=== PATIENT | male | born 1975 | race Hispanic/Latino ===

== ENCOUNTER 2021-03-01 10:42 | Emergency (ER) | payer SELFPAY ==
[2021-03-01 11:44] LABS: Protime INR 1.1
[2021-03-01] MEDS ORDERED: METHYLPREDNISOLONE 125 MG INJ ONE (11:53)
[2021-03-01] MEDS ORDERED: NA CHLORIDE 0.9% 500 ML ONE (11:53)
--- NOTE | 2021-03-01 11:53 | RAD REPORT ---
EXAM DESCRIPTION: RAD - Chest Single View - 03/01/2021 11:34 am CLINICAL HISTORY: Cough;Dyspnea Chest pain. COMPARISON: No comparisons FINDINGS: Portable technique limits examination quality. Mild bilateral interstitial lung opacities are present likely representing a viral infection/bronchit is. The heart is normal in size. No displaced fractures.
[2021-03-01 12:05] LABS: ALT/SGPT 30 U/L (12-78); AST/SGOT 36 U/L (15-37); Albumin 3.6 g/dL (3.4-5.0); Alkaline Phosphatase 132 U/L (45-117); BUN Blood Urea Nitrogen 12 mg/dL (7-18); Bicarbonate 25 mmol/L (21-32); Bilirubin Direct 0.2 mg/dL (0-0.2); Bilirubin Total 0.7 mg/dL (0.2-1.0); Ferritin 1052.9 ng/mL (26-388); Glucose Level 122 mg/dL (74-106); Potassium 3.5 mmol/L (3.5-5.1); Protein, Total 8.1 g/dL (6.4-8.2); Sodium Level 137 mmol/L (136-145); Troponin (Emerg Dept Use Only) < 0.02 ng/mL (0.0-0.045)
[2021-03-01 12:07] LABS: Absolute Lymphocytes (CBC) 0.5 K/uL (0.7-4.9); Basophils % 0.2 % (0-1.3); Hematocrit 37.1 % (39.6-49.0); Lymphocytes % 10.9 % (15.3-44.8); MPV 9.1 fL (7.6-11.3); RBC Red Blood Cell Count 4.18 M/uL (4.33-5.43)
[2021-03-01 12:37] LABS: SARS-COV-2 RT PCR POSITIVE (NEGATIVE)
[2021-03-01] MEDS ORDERED: CASIRIVIMAB/IMDEVIMAB 10 ML VIAL ONE (13:46)
--- NOTE | 2021-03-01 13:51 | ER ---
Nurse's Notes [facility] Name: Estrellita Tsang Age: 45 yrs Sex: Male : 1975 Arrival Date: 03/01/2021 Time: 10:46 Bed 17 Private MD: Diagnosis: Pneumonia due to SARS-associated coronavirus;Dehydration Presentation: 03/01 10:54 Chief complaint: Body aches, cough, chills, and fever 5 days, worse over last 2 days. hb TMAX 100. Coronavirus screen: Client presents with at least one sign or symptom that may indicate coronavirus-19. Standard/surgical mask placed on the client. Provider contacted for isolation considerations. Ebola Screen: No symptoms or risks identified at this time. Initial Sepsis Screen: Does the patient meet any 2 criteria? No. Patient's initial sepsis screen is negative. Does the patient have a suspected source of infection? No. Patient's initial sepsis screen is negative. Risk Assessment: Do you want to hurt yourself or someone else? Patient reports no desire to harm self or others. Onset of symptoms was February 24, 2021. 10:54 Method Of Arrival: Ambulatory hb 10:54 Acuity: MARILOU 3 hb Historical: - Allergies: 10:55 No Known Allergies; hb - Immunization history:: Adult Immunizations up to date. - Social history:: Smoking status: Patient denies any tobacco usage or history of. - Family history:: not pertinent. - Hospitalizations: : No recent hospitalization is reported. Screenin:52 Abuse screen: Denies threats or abuse. Abuse screen: Denies threats or abuse. ll1 Nutritional screening: No deficits noted. Tuberculosis screening: No symptoms or risk factors identified. Fall Risk IV access (20 points). Ambulatory Aid- Gait- Weak (10 pts.). Total Calderon Fall Scale indicates Low Risk Score (25-44 pts). Fall prevention measures have been instituted. Side Rails Up X 2 Frequent Obs/Assesments occuring As available Patient and Family Educated on Fall Prevention Program and strategies. Assessment: 11:00 General: Appears ill, Behavior is calm, cooperative, appropriate for age. Pain: ll1 Complains of pain in head Quality of pain is described as aching. Neuro: Level of Consciousness is awake, alert, obeys commands, Oriented to person, place, time, situation, Appropriate for age Toolmaker Grade Three are Moves all extremities. Full function Gait is steady, Speech is normal, Reports headache weakness. Cardiovascular: No deficits noted. Respiratory: Reports cough that is dry, Airway is patent Trachea midline Respiratory effort is even, unlabored, Respiratory pattern is regular, symmetrical, Sputum is clear Breath sounds are clear bilaterally. Derm: Reports body aches and chills, fatigue malaise. 12:00 Reassessment: No changes from previously documented assessment. Patient and/or family ll1 updated on plan of care and expected duration. Pain level reassessed. Patient is alert, oriented x 3, equal unlabored respirations, skin warm/dry/pink. 13:00 Reassessment: No changes from previously documented assessment. Patient and/or family ll1 updated on plan of care and expected duration. Pain level reassessed. Patient is alert, oriented x 3, equal unlabored respirations, skin warm/dry/pink. 14:00 Reassessment: No changes from previously documented assessment. Patient and/or family ll1 updated on plan of care and expected duration. Pain level reassessed. Patient is alert, oriented x 3, equal unlabored respirations, skin warm/dry/pink. 15:00 Reassessment: No changes from previously documented assessment. Patient and/or family ll1 updated on plan of care and expected duration. Pain level reassessed. Patient is alert, oriented x 3, equal unlabored respirations, skin warm/dry/pink. 16:00 Reassessment: No changes from previously documented assessment. Patient and/or family ll1 updated on plan of care and expected duration. Pain level reassessed. Patient is alert, oriented x 3, equal unlabored respirations, skin warm/dry/pink. 17:00 Reassessment: No changes from previously documented assessment. Patient and/or family ll1 updated on plan of care and expected duration. Pain level reassessed. Patient is alert, oriented x 3, equal unlabored respirations, skin warm/dry/pink. Vital Signs: 10:54 BP 137 / 88; Pulse 73; Resp 18; Temp 97.7; Pulse Ox 92% on R/A; Weight 83.46 kg; Height hb 5 ft. 7 in. (170.18 cm); Pain 10/10; 12:33 BP 130 / 70; Pulse 77; Resp 20; Pulse Ox 94% on R/A; ll1 17:14 BP 116 / 78; Pulse 72; Resp 18; Temp 98.0; Pulse Ox 95% on R/A; ll1 10:54 Body Mass Index 28.82 (83.46 kg, 170.18 cm) hb ED Course: 10:46 Patient arrived in ED. rg4 10:51 Arm band placed on Patient placed in an exam room, on a stretcher. ss 10:53 Brian Montoya MD is Attending Physician. rn 10:55 Selena Stewart RN is Primary Nurse. ll1 10:55 Triage completed. hb 11:05 Inserted saline lock: 22 gauge in right forearm, using aseptic technique. Blood ll1 collected. 11:19 Patient has correct armband on for positive identification. Bed in low position. Call mh5 light in reach. Side rails up X 1. Pillow given. ekg monitor tech on. Pulse ox on. NIBP on. 11:20 Initial lab(s) drawn, by ED staff, sent to lab. EKG done, by ED staff, reviewed by 5 Brian Montoya MD COVID swab sent to lab. Strep swab sent to lab. 11:34 CXR XRAY In Process Unspecified. EDMS 13:50 IV discontinued, intact, bleeding controlled, No redness/swelling at site. Pressure ll1 dressing applied. 13:55 Inserted saline lock: 22 gauge in right antecubital area, using aseptic technique. ll1 Blood collected. 17:09 IV discontinued, intact, bleeding controlled, No redness/swelling at site. Pressure ll1 dressing applied. 17:10 No provider procedures requiring assistance completed. ll1 17:10 TRANSLATED KOREAN / GEORGIAN. [facility] [employer] Administered Medications: 11:37 Drug: SOLU-Medrol (methylPrednisoLONE) 125 mg Route: IVP; Site: right antecubital; ll1 12:56 Follow up: Response: No adverse reaction ll1 11:37 Drug: NS 0.9% 500 ml Route: IV; Rate: bolus; Site: right antecubital; ll1 12:56 Follow up: Response: No adverse reaction; IV Status: Completed infusion; IV Intake: ll1 500ml 14:00 Drug: REGEN-COV Dose Pack 120 mg/mL-120 mg/mL (EUA) 600 mg Route: IV; Rate: calculated ll1 rate; Site: right antecubital; 17:11 Follow up: Response: No adverse reaction; IV Status: Completed infusion; IV Intake: ll1 260ml Intake: 12:56 IV: 500ml; Total: 500ml. ll1 17:11 IV: 260ml; Total: 760ml. ll1 Outcome: 13:50 Discharge ordered by . rn 17:10 Discharged to home ambulatory. ll1 17:10 Condition: stable 17:10 Discharge instructions given to patient, family, Instructed on discharge instructions, follow up and referral plans. medication usage, Demonstrated understanding of instructions, follow-up care, medications, Prescriptions given X 1. 17:14 Patient left the ED. ll1 Signatures: Dispatcher [employer] EDMS Brian Montoya MD MD rn Smirch, Shelby, RN RN ss Baxter, Heather, RN RN hb Garcia, Rubi [facility] Megan Yoon [facility] Selena Stewart RN RN 1
--- NOTE | 2021-03-01 13:51 | EDPHYS ---
Physician Documentation [facility] Name: Estrellita Tsang Age: 45 yrs Sex: Male : 1975 Arrival Date: 03/01/2021 Time: 10:46 Bed 17 Private MD: ED Physician Brian Montoya HPI: 03/01 11:28 This 45 yrs old Male presents to ER via Ambulatory with complaints of Fever, rn Chills, Body Aches. 11:28 The patient reports fever, not measured (subjective). Onset: The symptoms/episode rn began/occurred 5 day(s) ago. Modifying factors: there are no obvious modifying factors. Associated signs and symptoms: Pertinent positives: chills, cough, runny nose, shortness of breath. Severity of symptoms: At their worst the symptoms were moderate in the emergency department the symptoms are unchanged. The patient has not experienced similar symptoms in the past. The patient has not recently seen a physician. States last week began with fever chills, cough, generalized weakness. States mild shortness of breath now. Decreased appetite. Not Covid vaccinated.. Historical: - Allergies: 10:55 No Known Allergies; hb - Immunization history:: Adult Immunizations up to date. - Social history:: Smoking status: Patient denies any tobacco usage or history of. - Family history:: not pertinent. - Hospitalizations: : No recent hospitalization is reported. ROS: 11:28 Constitutional: Positive for fever and chills Eyes: Negative for injury, pain, redness, rn and discharge, ENT: Positive for nasal congestion and sore throat Cardiovascular: Negative for chest pain, palpitations, and edema, Respiratory: Positive for cough and mild shortness of breath Abdomen/GI: Negative for abdominal pain, nausea, vomiting, diarrhea, and constipation, Back: Negative for injury and pain, : Negative for injury, bleeding, discharge, and swelling, MS/Extremity: Negative for injury and deformity, Skin: Negative for injury, rash, and discoloration, Neuro: Positive for headache and generalized weakness 11:28 All other systems are negative. Exam: 11:28 Constitutional: This is a well developed, well nourished patient who is awake, alert rn Head/Face: Normocephalic, atraumatic. Eyes: Periorbital areas with no swelling, redness, or edema. ENT: Dry mucous membranes Cardiovascular: Regular rate and rhythm . No pulse deficits. Respiratory: Mild tachypnea. No retractions Abdomen/GI: Soft, non-tender Skin: Warm, dry, no cyanosis MS/ Extremity: Pulses equal, no cyanosis. Neurovascular intact. Full, normal range of motion. Equal circumference. Neuro: Awake and alert, GCS 15 16:05 ECG was reviewed by the Attending Physician. rn Vital Signs: 10:54 BP 137 / 88; Pulse 73; Resp 18; Temp 97.7; Pulse Ox 92% on R/A; Weight 83.46 kg; Height hb 5 ft. 7 in. (170.18 cm); Pain 10/10; 12:33 BP 130 / 70; Pulse 77; Resp 20; Pulse Ox 94% on R/A; ll1 17:14 BP 116 / 78; Pulse 72; Resp 18; Temp 98.0; Pulse Ox 95% on R/A; ll1 10:54 Body Mass Index 28.82 (83.46 kg, 170.18 cm) hb MDM: 10:54 Patient medically screened. rn 13:18 Differential diagnosis: viral Infection, bacterial infection, URI, bronchitis, rn pneumonia. Data reviewed: vital signs, nurses notes, lab test result(s), radiologic studies, plain films, and as a result, I will discharge patient. Data interpreted: monitor car operator: rate is 77 beats/min, rhythm is normal sinus rhythm, regular, with no ectopy, Interpretation: normal rate, normal rhythm, Pulse oximetry: on room air is 95 %. Interpretation: acceptable. Test interpretation: by ED physician or midlevel provider: plain radiologic studies, Chest x-ray shows mild bilateral interstitial infiltrates consistent with early Covid pneumonia. Counseling: I had a detailed discussion with the patient and/or guardian regarding: the historical points, exam findings, and any diagnostic results supporting the discharge/admit diagnosis, lab results, radiology results, the need for outpatient follow up, to return to the emergency department if symptoms worsen or persist or if there are any questions or concerns that arise at home. Response to treatment: the patient's symptoms have markedly improved after treatment, and as a result, I will discharge patient. Special discussion: I discussed with the patient/guardian in detail that at this point there is no indication for admission to the hospital. It is understood, however, that if the symptoms persist or worsen the patient needs to return immediately for re-evaluation. ED course: Patient feels better after fluids and steroids. Covid positive and chest x-ray shows mild Covid pneumonia. No new oxygen requirement. Offered Regeneron and patient accepts, consented, and will administer prior to discharge. Return precautions given and understood.. 03/01 10:59 Order name: BMP rn 03/01 10:59 Order name: Blood Culture Adult (2) rn 03/01 10:59 Order name: C-Reactive Protein rn 03/01 10:59 Order name: CBC with Diff rn 03/01 10:59 Order name: D-Dimer; Complete Time: 11:55 03/01 10:59 Order name: Ferritin; Complete Time: 12:31 rn 03/01 10:59 Order name: LFT's; Complete Time: 12:31 rn 03/01 10:59 Order name: Lactate; Complete Time: 12:31 rn 03/01 10:59 Order name: PT-INR; Complete Time: 11:55 rn 03/01 10:59 Order name: Procalcitonin; Complete Time: 12:31 03/01 10:59 Order name: Ptt, Activated; Complete Time: 11:55 rn 03/01 10:59 Order name: Strep; Complete Time: 12:31 rn 03/01 10:59 Order name: Troponin (emerg Dept Use Only); Complete Time: 12:31 03/01 10:59 Order name: CXR XRAY; Complete Time: 11:55 03/01 10:59 Order name: Cardiac monitoring; Complete Time: 11:19 03/01 10:59 Order name: Droplet/Contact Precautions; Complete Time: 11:00 03/01 10:59 Order name: EKG - Nurse/Tech; Complete Time: 11:19 03/01 10:59 Order name: IV Start; Complete Time: 11:00 03/01 11:00 Order name: Basic Metabolic Panel; Complete Time: 12:31 EDLA 03/01 11:00 Order name: Blood Culture [facility] 03/01 11:00 Order name: C-Reactive Protein; Complete Time: 12:31 [facility] 03/01 11:00 Order name: CBC with Automated Diff; Complete Time: 12:31 EDLA 03/01 12:29 Order name: Throat Culture [facility] 03/01 12:37 Order name: COVID-19/FLU A+B; Complete Time: 13:11 EDMS 03/01 10:59 Order name: Labs collected and sent; Complete Time: 11:00 rn 03/01 10:59 Order name: O2 Per Protocol; Complete Time: 11:00 rn 03/01 10:59 Order name: O2 Sat Monitoring; Complete Time: 11:00 rn EC:05 Rate is 79 beats/min. Rhythm is regular. QRS [place] is Normal. [place] interval is normal. QRS rn interval is normal. QT interval is normal. No Q waves. T waves are Normal. No ST changes noted. Clinical impression: NSR w/ Non-specific ST/T Changes. Interpreted by me. Reviewed by me. Administered Medications: 11:37 Drug: SOLU-Medrol (methylPrednisoLONE) 125 mg Route: IVP; Site: right antecubital; ll1 12:56 Follow up: Response: No adverse reaction ll1 11:37 Drug: NS 0.9% 500 ml Route: IV; Rate: bolus; Site: right antecubital; ll1 12:56 Follow up: Response: No adverse reaction; IV Status: Completed infusion; IV Intake: ll1 500ml 14:00 Drug: REGEN-COV Dose Pack 120 mg/mL-120 mg/mL (EUA) 600 mg Route: IV; Rate: calculated ll1 rate; Site: right antecubital; 17:11 Follow up: Response: No adverse reaction; IV Status: Completed infusion; IV Intake: ll1 260ml Disposition Summary: 03/01/21 13:50 Discharge Ordered Location: Home rn Problem: new rn Symptoms: have improved rn Condition: Stable rn Diagnosis - Pneumonia due to SARS-associated coronavirus rn - Dehydration rn Followup: rn - With: Private Physician - When: As needed - Reason: Recheck today's complaints, Re-evaluation by your physician Discharge Instructions: - Discharge Summary Sheet rn - Dehydration, Adult rn - COVID-19 rn - 10 Things You Can Do to Manage Your COVID-19 Symptoms at Home - [facility] rn Forms: - Medication Reconciliation Form rn - Thank You Letter rn - Antibiotic rn staffing - Prescription Opioid Use rn Prescriptions: - Prednisone 20 mg Oral Tablet - take 3 tablets by ORAL route once daily for 5 days; 15 tablet; Refills: 0, rn Product Selection Permitted Signatures: Dispatcher [employer] [facility] Brian Montoya MD MD rn Baxter, Heather, RN RN Selena Stewart RN RN ll1 Corrections: (The following items were deleted from the chart) 11 11:00 Influenza Screen (A \T\ B)+BA.LAB.BRZ ordered. EDMS EDMS 11:00 CORONAVIRUS+MR.LAB.BRZ ordered. EDMS EDMS
[2021-03-01 17:25] VITALS: BP 116/78; TEMP 98; O2SAT 95
--- NOTE | 2021-03-03 10:08 | EKG ---
Test Date: 2021-03-01 Test Time: 11:16:31 Feller Machine Operator: CATE MEASUREMENT RESULTS: Intervals: Rate: 79 OR: 130 QRSD: 72 QT: 328 QTc: 376 Disney: P: -2 OR: 130 QRS: 54 T: 11 INTERPRETIVE STATEMENTS: Normal sinus rhythm Nonspecific T wave abnormality Abnormal ECG No previous ECG available for comparison Electronically Signed On 03-03-21 10:04:55 CDT by Ramsey Gonsalez
== END 2021-03-01 17:14 | disposition home or self-care (01) ==
LOC: ER 10:42
DX: U07.1 COVID-19 (principal); J12.82 Pneumonia due to coronavirus disease 2019; E86.0 Dehydration
CPT/HCPCS: 0240U; 36415; 71045; 80048; 80076; 82728; 83605; 84145; 84484; 85025; 85379; 85610; 85730; 86140; 87040; 87070; 87081; 87205; 93005; 96361; 96365; 96366; 96375; 99284; J2930; J7040